=== PATIENT | male | born 1970 | race Two or more races ===

== ENCOUNTER 2016-09-17 17:56 | Emergency (ER) | payer OTHER ==
[~2016-09-17] VITALS: Ht 175.3 cm; Wt 77.1 kg
[2016-09-17] MEDS ORDERED: UNOBMED (18:02)
[2016-09-17] MEDS ORDERED: LORazepam Inj 2mg/ml 1ml IV ONE ×2 (18:30→20:45)
[2016-09-17 18:45] LABS: APPEARANCE,URINE CLEAR; KETONES,URINE 3+ (NEGATIVE); LEUKOCYTE ESTERASE ,URINE NEGATIVE (NEGATIVE); NITRITE,URINE NEGATIVE (NEGATIVE); PH,URINE 6.5 (4.5-8.0); PROTEIN,URINE 2+ (NEGATIVE); UROBILINOGEN,URINE NORMAL MG/DL (0.0-1.0)
[2016-09-17 18:54] LABS: BASOPHILS % (AUTO) 0.9 % (0.0-2.0); EOSINOPHILS % (AUTO) 0.2 % (0.0-3.0); LYMPHOCYTES % (AUTO) 10.9 % (20.0-45.0); MEAN CORPUSCULAR HEMOGLOBIN 32.7 PG (27.0-31.0); MEAN CORPUSCULAR HGB CONC 33.3 G/DL (32.0-36.0); MEAN CORPUSCULAR VOLUME 98 FL (80-99); MEAN PLATELET VOLUME 5.5 FL (6.5-10.1); MONOCYTES % (AUTO) 5.2 % (1.0-10.0); NEUTROPHILS % (AUTO) 82.8 % (45.0-75.0); PLATELET COUNT 205 K/UL (150-450); RED BLOOD COUNT 4.72 M/UL (4.70-6.10); RED CELL DISTRIBUTION WIDTH 12.4 % (11.6-14.8); WHITE BLOOD COUNT 9.9 K/UL (4.8-10.8)
[2016-09-17 18:57] LABS: ALANINE AMINOTRANSFERASE 72 U/L (3-41); ALBUMIN/GLOBULIN RATIO 1.1 (1.0-2.7); ANION GAP 27 (5-15); ASPARTATE AMINO TRANSFERASE 143 U/L (5-40); CALCIUM 9.4 mg/dL (8.6-10.2); CARBON DIOXIDE 22 mEQ/L (20-30); CHLORIDE 77 mEQ/L (98-107); CREATININE 0.8 mg/dL (0.7-1.2); GLOMERULAR FILTRATION RATE > 60 mL/min (>60); HEMOLYSIS 13; LIPASE 44 U/L (< 60); POTASSIUM 3.7 mEQ/L (3.4-4.9); SODIUM 126 mEQ/L (135-145)
[2016-09-17 19:02] LABS: BACTERIA,URINE FEW /HPF; FINE GRANULAR CASTS,URINE 0-2 /LPF
[2016-09-17 19:04] VITALS: BP 155/91
[2016-09-17 20:00] VITALS: BP 177/92
[2016-09-17 21:00] VITALS: BP 139/89
[2016-09-17] MEDS ORDERED: Famotidine 20 MG/ 2ML VIAL IVP SCH (21:00)
[2016-09-17] MEDS ORDERED: Morphine Sulfate 4mg/ml Inj IVP ONE ×2 (21:45→23:45)
[2016-09-17 22:57] VITALS: BP 148/99
[2016-09-17 23:30] VITALS: BP 134/99
--- NOTE | 2016-09-17 23:33 | Emergency Room Report ---
History of Present Illness General Chief Complaint: Altered Mental Status Source: Patient, EMS Present Illness HPI The patient is a 46-year-old male who presented after having increased shakiness and altered mental status. The patient had reportedly been lifting boxes earlier in the day. The patient stated that he had increased low back pain. The which was predominantly on the left flank. The he denies fever however he has reportedly been having some cough for the past one week. The patient states he last drank alcohol earlier today. He states he drinks no more than 3 alcohol drinks a day. He states he's been drinking increase fluid do to have feeling like he was dehydrated. Allergies: Coded Allergies: No Known Allergies (Unverified , 09/17/16) Patient History Past Medical History: see triage record Reviewed Nursing Documentation: PMH: Agreed, PSxH: Agreed Nursing Documentation-PMH Hx Hypertension: Yes Review of Systems All Other Systems: negative except mentioned in HPI Physical Exam Vital Signs Date Time Temp Pulse Resp B/P Pulse Ox O2 Delivery O2 Flow Rate FiO2 09/17/16 17:58 99.0 120 22 184/12 98 Room Air 09/17/16 22:57 4.0 Sp02 EP Interpretation: reviewed, normal General Appearance: normal inspection, alert, GCS 15, moderate distress Head: atraumatic ENT: normal ENT inspection, hearing grossly normal, normal voice Neck: normal inspection, full range of motion, supple, no bony tend Respiratory: normal inspection, lungs clear, normal breath sounds, no respiratory distress, no retraction, no wheezing Cardiovascular #1: regular rate, rhythm, no edema Gastrointestinal: normal inspection, normal bowel sounds, non tender, soft, no guarding, no hernia Genitourinary: no CVA tenderness Musculoskeletal: normal inspection, back normal, normal range of motion Neurologic: normal inspection, alert, oriented x3, responsive, senior technical project manager III-XII nml as tested, speech normal, other - generalized tremor, oriented Psychiatric: normal inspection, judgement/insight normal, mood/affect normal Skin: normal inspection, normal color, no rash Medical Decision Making Diagnostic Impression: Primary Impression: Altered mental status Additional Impressions: Seizure Hyponatremia Alcohol withdrawal Thoracic spine fracture ER Course The patient presented for altered mental status and low back pain. Differential diagnosis included was not limited to alcohol withdrawal, substance abuse, hyponatremia, meningitis, urinary tract infection, intracranial hemorrhage, CVA among others.Because of complexity of patient's case laboratory testing and imaging studies were ordered.The CT the head read by radiologist showed no evident hemorrhage with normal ventricle size in no evident CVA. CT of the abdomen pelvis read by radiology showed fractures of indeterminate age of T10-T12. There was no free air noted. The patient was given IV pain medications as well as IV fluids. The patient was initially given Ativan for anxiety. The patient was subsequently noted to have a seizure. Lasting approximately 30 seconds. Chest x-ray one view interpreted by me showed normal cardiac size normal lung cortes no evident infiltrate. The patient's case was discussed with Dr. Lee at [facility] case [id number] who will arrange transfer. Labs Test 09/17/16 18:20 White Blood Count 9.9 K/UL (4.8-10.8) Red Blood Count 4.72 M/UL (4.70-6.10) Hemoglobin 15.4 G/DL (14.2-18.0) Hematocrit 46.3 % (42.0-52.0) Mean Corpuscular Volume 98 FL (80-99) Mean Corpuscular Hemoglobin 32.7 PG (27.0-31.0) Mean Corpuscular Hemoglobin Concent 33.3 G/DL (32.0-36.0) Red Cell Distribution Width 12.4 % (11.6-14.8) Platelet Count 205 K/UL (150-450) Mean Platelet Volume 5.5 FL (6.5-10.1) Neutrophils (%) (Auto) 82.8 % (45.0-75.0) Lymphocytes (%) (Auto) 10.9 % (20.0-45.0) Monocytes (%) (Auto) 5.2 % (1.0-10.0) Eosinophils (%) (Auto) 0.2 % (0.0-3.0) Basophils (%) (Auto) 0.9 % (0.0-2.0) Urine Color Pale yellow Urine Appearance Clear Urine pH 6.5 (4.5-8.0) Urine Specific [place] 1.010 (1.005-1.035) Urine Protein 2+ (NEGATIVE) Urine Glucose (UA) Negative (NEGATIVE) Urine Ketones 3+ (NEGATIVE) Urine Occult Blood 3+ (NEGATIVE) Urine Nitrite Negative (NEGATIVE) Urine Bilirubin Negative (NEGATIVE) Urine Urobilinogen Normal MG/DL (0.0-1.0) Urine Leukocyte Esterase Negative (NEGATIVE) Urine RBC 2-4 /HPF (0 - 0) Urine WBC 5-10 /HPF (0 - 0) Urine Squamous Epithelial Cells None /LPF (NONE/OCC) Urine Bacteria Few /HPF (NONE) Urine Fine Granular Casts 0-2 /LPF (NONE) Sodium Level 126 mEQ/L (135-145) Potassium Level 3.7 mEQ/L (3.4-4.9) Chloride Level 77 mEQ/L (98-107) Carbon Dioxide Level 22 mEQ/L (20-30) Anion Gap 27 (5-15) Blood Urea Nitrogen 6 mg/dL (7-23) Creatinine 0.8 mg/dL (0.7-1.2) Estimat Glomerular Filtration Rate > 60 mL/min (>60) Glucose Level 153 mg/dL (74-106) Calcium Level 9.4 mg/dL (8.6-10.2) Total Bilirubin 1.0 mg/dL (0.0-1.2) Aspartate Amino Transf (AST/SGOT) 143 U/L (5-40) Alanine Aminotransferase (ALT/SGPT) 72 U/L (3-41) Alkaline Phosphatase 71 U/L (40-129) Total Protein 8.0 g/dL (6.6-8.7) Albumin 4.3 g/dL (3.5-5.2) Globulin 3.7 g/dL Albumin/Globulin Ratio 1.1 (1.0-2.7) Lipase 44 U/L (< 60) Urine Opiates Screen Negative (NEGATIVE) Urine Barbiturates Screen Negative (NEGATIVE) Phencyclidine (PCP) Screen Negative (NEGATIVE) Urine Amphetamines Screen Negative (NEGATIVE) Urine Benzodiazepines Screen Negative (NEGATIVE) Urine Cocaine Screen Negative (NEGATIVE) Urine Marijuana (THC) Screen Negative (NEGATIVE) Chest X-Ray Diagnostic Results EP Interpretation: Yes Findings: no consolidation, no effusion, no pneumothorax, no acute cardiopulmonary disease Number of Views: 1 Last Vital Signs Date Time Temp Pulse Resp B/P Pulse Ox O2 Delivery O2 Flow Rate FiO2 09/17/16 22:57 98.8 106 20 148/99 97 Nasal Cannula 4.0 Status: unchanged Disposition: XFER SHT-TRM HOSP Condition: Serious Referrals: [facility] (PCP) Don Burns Sep 17, 2016 23:33
[2016-09-18 00:30] VITALS: BP 135/92
[2016-09-18 01:30] VITALS: BP 142/96
[2016-09-18 01:47] VITALS: BP 142/96
--- NOTE | 2016-09-18 08:44 | Diagnostic Imaging Report ---
Indication: Altered mental status Technique: Contiguous 5 mm thick transaxial imaging of the head obtained in a Siemens Sensation [address] scanner. Soft tissue and bone windows generated. Total Dose length Product (DLP): [address] Dose Index Volume (CTDIvol): 70.38 mGy Comparison: none Findings: The size and configuration of the cortical sulci, basal cisterns, and ventricles are within normal limits for age. There is no mass effect, midline shift, or edema identified. There is no evidence of acute hemorrhage or abnormal intra-axial or extra-axial fluid collections. The bones and soft tissues are unremarkable. Impression: No mass effect, edema or acute bleed. [facility] has communicated the preliminary results to the Emergency Department. Their findings are largely concordant with this report. The CT scanner at [facility] is accredited by the [employer] and the scans are performed using protocols designed to limit radiation exposure to as low as reasonably achievable to attain images of sufficient resolution adequate for diagnostic evaluation.
--- NOTE | 2016-09-18 12:21 | Diagnostic Imaging Report ---
Indication: Dyspnea Comparison: None A single view chest radiograph was obtained. Findings: Cardiomediastinal appearance is within normal limits for age. Pulmonary vascularity is appropriate. The diaphragmatic contour is smooth and costophrenic angles are sharp. No pleural effusions are identified. The bones are unremarkable. Impression: No acute findings
--- NOTE | 2016-09-23 10:30 | Diagnostic Imaging Report ---
Indication: Abdominal pain Technique: Continuous helical transaxial imaging of the abdomen and pelvis was obtained from the lung bases to the pubic symphysis. No intravenous contrast was administered. Coronal 2-D reformats were also obtained. Total Dose length Product (DLP): [address] Dose Index Volume (CTDIvol): 13 mGy Comparison: none Findings: The lung bases are clear. There is severe diffuse decreased attenuation of the liver geographically worse in the right lobe. Breathing motion limits evaluation in the mid abdomen. There is no obvious nephrolithiasis or hydronephrosis. Small bilateral inguinal hernias are present containing fat. Urinary bladder is nondistended. Appendix is normal. Mild arterial vascular calcifications are present. Impression: Severe fatty liver Bilateral hernias containing fat Prostate calcification Atherosclerotic vascular disease The CT scanner at [facility] is accredited by the [employer] and the scans are performed using protocols designed to limit radiation exposure to as low as reasonably achievable to attain images of sufficient resolution adequate for diagnostic evaluation.
== END 2016-09-18 01:49 | disposition short-term general hospital (02) ==
LOC: EDBD 17:56 → EMR 21:21 → EDBEDREQ 21:46 → EMR 09-18 01:49
DX: R41.82 Altered mental status, unspecified (principal); R56.9 Unspecified convulsions; E87.1 Hypo-osmolality and hyponatremia; F10.239 Alcohol dependence with withdrawal, unspecified; S22.009A Unspecified fracture of unspecified thoracic vertebra, initial encounter for closed fracture; X58.XXXA Exposure to other specified factors, initial encounter; Y92.9 Unspecified place or not applicable; I10 Essential (primary) hypertension
CPT/HCPCS: 36415; 70450; 71010; 74176; 80053; 80300; 81003; 83690; 85025; 96365; 96374; 96375; 99285; J0696; J2270; S0028